=== PATIENT | female | born 1950 | race Caucasian/White ===

== ENCOUNTER 2017-07-22 08:44 | Outpatient (CLI) | payer MEDICARE, OTHER ==
--- NOTE | 2017-07-27 15:19 | DEXA Report ---
DEXA: 07/22/2017 CLINICAL INDICATION: Postmenopausal. TECHNIQUE: Dual energy x-ray absorptiometry (DXA) was performed on a [employer] system. Regions measured are the AP spine, femoral neck, and, if needed, forearm. COMPARISON: None. In accordance with the International Society for Clinical Densitometry (ISCD) guidelines, data from previous exams may be reanalyzed using current recommendations and techniques. This is done to allow a more accurate basis for comparison with the current study. FINDINGS Data for the lumbar spine is as follows: REGION BMD (g/cm/cm) T-SCORE Z-SCORE L1 0.982 -1.2 -0.6 L2 1.116 -0.7 0.0 L3 1.086 -0.9 -0.3 L4 0.976 -1.9 -1.2 TOTAL 1.038 -1.2 -0.5 NOTE: All evaluable vertebrae are used for classification. Data for the hip is as follows: REGION BMD (g/cm/cm) T-SCORE Z-SCORE Neck 0.855 -1.3 -0.4 TOTAL 0.853 -1.2 -0.6 NOTE: The femoral neck or total proximal femur, whichever is lowest, is used for classification. IMPRESSION THE WHO CLASSIFICATION BASED ON THE INTERNATIONAL REFERENCE STANDARD IS OSTEOPENIA. THE FRACTURE RISK IS INCREASED. RECOMMENDATION: Patients with diagnosis of osteoporosis or osteopenia should have regular bone mineral density assessment. For those eligible for Medicare, routine testing is allowed once every 2 years. Testing frequency can be increased for patients who have rapidly progressing disease or for those who are receiving medical therapy to restore bone mass. COMMENT: World Health Organization (WHO) definitions for osteoporosis and osteopenia: NORMAL BMD: T-score at 1.0 or higher, fracture risk is low. OSTEOPENIA BMD: T-score between 1.0 and -2.5, fracture risk is increased. OSTEOPOROSIS BMD: T-score at 2.5 or lower, fracture risk high. National Osteoporosis Foundation recommends: 1. Obtain adequate dietary calcium (at least 1200 mg per day) and vitamin D (400 -800 international units per day). 2. Participate, as appropriate, in regular weightbearing and muscle- strengthening exercise. 3. Avoid tobacco use and reduce alcohol and caffeine intake. 4. For more detailed information see the website at www.NOF.org. TD: 07/22/2017 19:43 MTDD
== END 2017-07-22 08:45 | disposition home or self-care (01) ==
LOC: DI 08:44
PROVIDERS: ATTEND Physician Assistant Medical
DX: M85.89 Other specified disorders of bone density and structure, multiple sites (principal)
CPT/HCPCS: 77080

== ENCOUNTER 2017-07-22 08:46 | Outpatient (CLI) | payer MEDICARE, OTHER ==
--- NOTE | 2017-07-28 15:28 | Mammography Report ---
DATE OF SERVICE: 07/22/2017 DIGITAL BILATERAL SCREENING MAMMOGRAM: 07/22/2017 COMPARISON: Mammogram 08/15/2015 INDICATION: Screening mammography. TECHNIQUE: Bilateral CC and MLO breast views. FINDINGS There are scattered fibroglandular densities. No dominant mass, architectural distortion, or concerning cluster of microcalcifications are seen. IMPRESSION: BIRADS category 1. Negative. RECOMMENDATIONS: Annual screening mammogram. STANDARD QUALIFYING STATEMENTS 1. This examination was reviewed with the aid of Computed-Aided Detection (CAD) . 2. A negative or benign imaging report should not delay biopsy if clinically suspicious findings are present. Consider surgical consultation if warranted. More than 5% of cancers are not identified by imaging. 3. Dense breasts may obscure an underlying neoplasm. TD: 07/26/2017 21:45 KIMANI
== END 2017-07-22 08:47 | disposition home or self-care (01) ==
LOC: DI 08:46
PROVIDERS: ATTEND Physician Assistant Medical
DX: Z12.31 Encounter for screening mammogram for malignant neoplasm of breast (principal)
CPT/HCPCS: 77067

== ENCOUNTER 2018-07-20 09:08 | Outpatient (CLI) | payer MEDICARE, OTHER ==
[2018-07-20 13:55] LABS: BASOPHILS # (AUTO) 0.1 10^3/uL (0.0-0.1); BASOPHILS % (AUTO) 1.9 %; EOSINOPHILS # (AUTO) 0.1 10^3/uL (0.0-0.7); EOSINOPHILS % (AUTO) 1.7 %; HGB - HEMOGLOBIN 14.5 g/dL (12.0-16.0); LYMPHOCYTES # (AUTO) 1.4 10^3/uL (1.5-3.5); MEAN CORPUSCULAR HEMOGLOBIN 31.9 pg (27.0-31.0); MEAN CORPUSCULAR HGB CONC 34.3 g/dL (32.0-36.0); MEAN PLATELET VOLUME 8.3 fL (7.9-10.8); MONOCYTES # (AUTO) 0.3 10^3/uL (0.0-1.0); MONOCYTES % (AUTO) 9.5 %; NEUTROPHILS # (AUTO) 1.8 10^3/uL (1.5-6.6); NEUTROPHILS % (AUTO) 47.9 %; PLT - PLATELET COUNT 273 10^3/uL (130-450); RED BLOOD COUNT 4.56 10^6/uL (4.20-5.40); RED CELL DISTRIBUTION WIDTH 13.2 % (12.0-15.0); WHITE BLOOD COUNT 3.7 x10^3/uL (4.8-10.8)
[2018-07-20 14:29] LABS: ALBUMIN 3.9 g/dL (3.2-5.5); ALBUMIN/GLOBULIN RATIO 1.3 (1.0-2.2); ALKALINE PHOSPHATASE 57 IU/L (42-121); ALT ALANINE AMINOTRANSFERASE 15 IU/L (10-60); AST ASPARTATE AMINOTRANSFERASE 16 IU/L (10-42); BILIRUBIN,TOTAL 0.4 mg/dL (0.2-1.0); BUN - BLOOD UREA NITROGEN 21 mg/dL (6-20); CALCIUM 8.8 mg/dL (8.5-10.3); CARBON DIOXIDE - CO2 25 mmol/L (21-32); CHLORIDE 109 mmol/L (101-111); CHOL/HDL RATIO 3.2 (<4.4); CHOLESTEROL 224 mg/dL; CREATININE 0.8 mg/dL (0.4-1.0); GFR - MDRD 71 (>89); GLUCOSE 112 mg/dL (70-100); HDL CHOLESTEROL 69 mg/dL; LDL CHOLESTEROL,CALCULATED 141 mg/dL; SODIUM 142 mmol/L (135-145); TOTAL PROTEIN 6.9 g/dL (6.7-8.2); VLDL CHOLESTEROL 14 mg/dL
[2018-07-21 09:47] LABS: HEPATITIS C ANTIBODY NON-REACTIVE (NON-REACTIVE)
== END 2018-07-20 23:59 | disposition home or self-care (01) ==
LOC: LAB.WCP 09:08
PROVIDERS: ATTEND Physician Assistant Medical
DX: E78.2 Mixed hyperlipidemia (principal); E03.9 Hypothyroidism, unspecified; K21.9 Gastro-esophageal reflux disease without esophagitis; Z11.59 Encounter for screening for other viral diseases
CPT/HCPCS: 36415; 80053; 80061; 83721; 84443; 85025; 86803

== ENCOUNTER 2018-07-26 10:12 | Outpatient (CLI) | payer MEDICARE, OTHER ==
--- NOTE | 2018-07-27 09:06 | Mammography Report ---
Reason: SCREENING MAMMO Procedure Date: 07/26/2018 Accession Number: [id number] / [id number] Procedure: MGN - Screening Mammo Dig Bilat CPT Code: FULL RESULT: EXAM: Screening Mammo Dig Bilat DATE: 07/26/2018 10:28 AM CLINICAL HISTORY: Screening encounter. History of late childbearing. TECHNIQUE: Bilateral CC and MLO views were obtained. COMPARISON: 07/22/2017 through 05/30/2013. FINDINGS: The breasts demonstrate scattered fibroglandular densities bilaterally. No suspicious masses, clustered microcalcifications, or regions of architectural distortion are identified. IMPRESSION: Negative examination RECOMMENDATION: Routine annual screening unless otherwise clinically indicated. BIRADS CATEGORY 1: Negative STANDARD QUALIFYING STATEMENTS: 1. This examination was reviewed with the aid of Computer-Aided Detection (CAD). 2. A negative or benign imaging report should not preclude biopsy if clinically suspicious findings are present. 3. Dense breasts may obscure an underlying neoplasm. 4. This examination was reviewed without the aid of 3D breast imaging (tomosynthesis).
== END 2018-07-26 10:13 | disposition home or self-care (01) ==
LOC: DI.N 10:12
DX: Z12.31 Encounter for screening mammogram for malignant neoplasm of breast (principal)
CPT/HCPCS: 77067

== ENCOUNTER 2018-09-19 14:48 | Outpatient (CLI) | payer MEDICARE, OTHER | END 2018-09-19 14:49 | disposition home or self-care (01) | LOC: SC 14:48 | PROVIDERS: ATTEND Internal Medicine Pulmonary Disease | DX: G47.10 Hypersomnia, unspecified (principal); G47.8 Other sleep disorders; R06.83 Snoring; E66.9 Obesity, unspecified; Z68.33 Body mass index [BMI] 33.0-33.9, adult | CPT/HCPCS: 99203; G0463; 99212 ==

== ENCOUNTER 2018-10-17 19:29 | Outpatient (CLI) | payer MEDICARE, OTHER | END 2018-10-17 19:30 | disposition home or self-care (01) | LOC: SC 19:29 | PROVIDERS: ATTEND Internal Medicine Pulmonary Disease | DX: G47.61 Periodic limb movement disorder (principal) | CPT/HCPCS: 95810 ==

== ENCOUNTER 2018-10-30 15:13 | Outpatient (CLI) | payer MEDICARE, OTHER | END 2018-10-30 15:14 | disposition home or self-care (01) | LOC: SC 15:13 | PROVIDERS: ATTEND Nurse Practitioner Family | DX: R06.83 Snoring (principal); G47.61 Periodic limb movement disorder | CPT/HCPCS: 99214; G0463; 99212 ==

== ENCOUNTER 2018-12-15 09:56 | Outpatient (CLI) | payer MEDICARE, OTHER ==
[2018-12-15 13:09] LABS: BUN - BLOOD UREA NITROGEN 22 mg/dL (6-20); CALCIUM 8.7 mg/dL (8.5-10.3); CARBON DIOXIDE - CO2 23 mmol/L (21-32); CHLORIDE 108 mmol/L (101-111); CHOL/HDL RATIO 3.3 (<4.4); CHOLESTEROL 223 mg/dL; CREATININE 0.8 mg/dL (0.4-1.0); GFR - MDRD 71 (>89); GLUCOSE 78 mg/dL (70-100); HDL CHOLESTEROL 67 mg/dL; LDL CHOLESTEROL,CALCULATED 142 mg/dL; LDL/HDL RATIO 2.1 (<4.4); SODIUM 140 mmol/L (135-145); VLDL CHOLESTEROL 14 mg/dL
[2018-12-15 13:12] LABS: HB2 TOTAL 14.9 g/dL; HEMOGLOBIN A1C 0.5 g/dL; HEMOGLOBIN A1C % 5.2 % (4.6-6.2)
== END 2018-12-15 23:59 | disposition home or self-care (01) ==
LOC: LAB.WCP 09:56
PROVIDERS: ATTEND Physician Assistant Medical
DX: R73.9 Hyperglycemia, unspecified (principal); E03.9 Hypothyroidism, unspecified; E78.2 Mixed hyperlipidemia
CPT/HCPCS: 36415; 80048; 80061; 83036; 83721

== ENCOUNTER 2019-09-27 15:51 | Outpatient (CLI) | payer MEDICARE, OTHER ==
--- NOTE | 2019-09-28 16:27 | DEXA Report ---
Reason: BONE DISEASE Procedure Date: 09/27/2019 Accession Number: [id number] / [id number] Procedure: DEX - Dexa Spine and/or Hip CPT Code: Final Report FULL RESULT: EXAM: Dexa Spine and/or Hip DATE: 09/27/2019 4:15 PM CLINICAL HISTORY: BONE DISEASE TECHNIQUE: Dual energy x-ray absorptiometry (DXA) was performed on a [employer] System. Regions measured are the AP Spine, femoral neck, and if needed forearm. COMPARISON: None. In accordance with the International Society for Clinical Densitometry (ISCD) guidelines, data from previous exams may be reanalyzed using current recommendations and techniques. This is done to allow a more accurate basis for comparison with the current study. FINDINGS: The data for the lumbar spine is as follows: BMD (g/cm/cm) T-SCORE Z-SCORE REGION L1 1.063 -0.6 0.4 L2 1.186 -0.1 0.9 L3 1.029 -1.4 -0.4 L4 0.989 -1.8 -0.8 TOTAL 1.057 -1.0 0.0 NOTE: All evaluable vertebrae are used for classification The data for the hip is as follows: BMD (g/cm/cm) T-SCORE Z-SCORE REGION Neck 0.738 -2.2 -0.9 TOTAL 0.776 -1.8 -0.9 NOTE: The femoral neck or total proximal femur, whichever is lowest, is used for classification. DXA RESULTS SUMMARY: Spine SCAN DATE AGE BMD CHANGE VS CHANGE VS PREVIOUS PREVIOUS % 09[age]27/2019 [age] 1.057 0.019 1.8 07/22/2017 [age] 1.038 * Denotes significant change at the 95% confidence level. Denotes dissimilar scan types or analysis methods. DXA RESULTS SUMMARY: Hip SCAN DATE AGE BMD CHANGE VS CHANGE VS PREVIOUS PREVIOUS % 09[age]27/2019 69.1 0.776 -0.077* -9.0 07/22/2017 [age] 0.853 * Denotes significant change at the 95% confidence level. Denotes dissimilar scan types or analysis methods. IMPRESSION: THE WHO CLASSIFICATION BASED ON THE INTERNATIONAL REFERENCE STANDARD IS OSTEOPENIA. THE FRACTURE RISK IS INCREASED. Interval decrease in bone density in the hip is statistically significant. RECOMMENDATION: Patients with diagnosis of osteoporosis or osteopenia should have regular bone mineral density assessment. For those eligible for Medicare, routine testing is allowed once every 2 years. Testing frequency can be increased for patients who have rapidly progressing disease or for those who are receiving medical therapy to restore bone mass. COMMENT: World Health Organization (WHO) definitions for osteoporosis and osteopenia: NORMAL BMD: T-score at -1.0 or higher, fracture risk is low OSTEOPENIA BMD: T-score between -1.0 and -2.5, fracture risk is increased. OSTEOPOROSIS BMD: T-score at -2.5 or lower, fracture risk is high. National Osteoporosis Foundation recommends: 1. Obtain adequate dietary calcium (at least 1200 mg per day) and vitamin D (400-800 international units per day). 2. Participate, as appropriate, in regular weightbearing and muscle-strengthening exercise. 3. Avoid tobacco use and reduce alcohol and caffeine intake. 4. For more detailed information see the website at www.NOF.org.
== END 2019-09-27 15:52 | disposition home or self-care (01) ==
LOC: DI 15:51
PROVIDERS: ATTEND Physician Assistant Medical
DX: M85.88 Other specified disorders of bone density and structure, other site (principal)
CPT/HCPCS: 77080

== ENCOUNTER 2019-09-27 15:52 | Outpatient (CLI) | payer MEDICARE, OTHER ==
--- NOTE | 2019-09-28 08:26 | Mammography Report ---
Reason: ROUTINE MAMMO Procedure Date: 09/27/2019 Accession Number: [id number] / [id number] Procedure: SERENA - Screening Mammo w/Raffaele CPT Code: Final Report FULL RESULT: EXAM: Screening Mammo w/Raffaele DATE: 09/27/2019 4:25 PM CLINICAL HISTORY: Screening encounter. History of late childbearing. TECHNIQUE: (B) - Bilateral CC and MLO views were obtained. COMPARISON: 07/26/2018 through 01/28/2010. PARENCHYMAL PATTERN: (A) - The breast(s) demonstrate(s) scattered fibroglandular densities. FINDINGS: There are no suspicious masses, calcifications, or areas of distortion. IMPRESSION: Negative examination. BI-RADS category 1. RECOMMENDATION: (ANNUAL) - Recommend routine annual screening mammography. BI-RADS CATEGORY: (1) - Negative. STANDARD QUALIFYING STATEMENTS: 1. This examination was not reviewed with the aid of Computer-Aided Detection (CAD). 2. A negative or benign imaging report should not preclude biopsy if clinically suspicious findings are present. 3. Dense breasts may obscure an underlying neoplasm. 4. This examination was reviewed without the aid of 3D breast imaging (tomosynthesis).
== END 2019-09-27 15:53 | disposition home or self-care (01) ==
LOC: DI 15:52
PROVIDERS: ATTEND Physician Assistant Medical
DX: Z12.31 Encounter for screening mammogram for malignant neoplasm of breast (principal)
CPT/HCPCS: 77063; 77067

== ENCOUNTER 2019-10-01 08:00 | Outpatient (CLI) | payer MEDICARE, OTHER | END 2019-10-01 23:59 | disposition home or self-care (01) | LOC: LAB.WCP 08:00 | PROVIDERS: ATTEND Physician Assistant Medical | DX: E03.9 Hypothyroidism, unspecified (principal) | CPT/HCPCS: 36415; 84443 ==

== ENCOUNTER 2020-10-21 09:58 | Outpatient (CLI) | payer MEDICARE, OTHER ==
--- NOTE | 2020-10-21 12:01 | Mammography Report ---
BILATERAL DIGITAL SCREENING MAMMOGRAM 3D/2D: 10/21/2020 CLINICAL: Routine screening. Comparison is made to exams dated: 09/27/2019 mammogram, 07/26/2018 mammogram, 07/22/2017 mammogram, 07/26 mammogram, 07/08/2014 mammogram, and 05/30/2013 mammogram - [facility]. The tissue of both breasts is predominantly fatty. No significant masses, calcifications, or other findings are seen in either breast. There has been no significant interval change. IMPRESSION: NEGATIVE There is no mammographic evidence of malignancy. A 1 year screening mammogram is recommended. This exam was interpreted at Station ID: [id number]. NOTE: For mammograms, a report in lay terms will be sent to the patient. Approximately 15% of breast malignancies will not be visualized mammographically. In the management of a palpable breast mass, a negative mammogram must not discourage biopsy of a clinically suspicious lesion. Electronically Signed By: Desmond Welch acr/penrad:10/21/2020 11:10:54 ACR BI-RADS Category 1: Negative 3341F PARENCHYMAL PATTERN: (F) - The breast(s) demonstrate(s) diffuse fatty replacement. BI-RADS CATEGORY: (1) - 1 RECOMMENDATION: (ANNUAL) - Recommend routine annual screening mammography. [id number] 1 year screening LATERALITY: (B)
== END 2020-10-21 09:59 | disposition home or self-care (01) ==
LOC: DI.N 09:58
DX: Z12.31 Encounter for screening mammogram for malignant neoplasm of breast (principal)

== ENCOUNTER 2020-12-11 08:00 | Outpatient (CLI) | payer MEDICARE, OTHER ==
[2020-12-11 17:50] LABS: BASOPHILS # (AUTO) 0.1 10^3/uL (0.0-0.1); BASOPHILS % (AUTO) 1.4 %; EOSINOPHILS # (AUTO) 0.1 10^3/uL (0.0-0.7); EOSINOPHILS % (AUTO) 1.9 %; HCT - HEMATOCRIT 44.3 % (37.0-47.0); HGB - HEMOGLOBIN 13.7 g/dL (12.0-16.0); LYMPHOCYTES # (AUTO) 1.8 10^3/uL (1.5-3.5); LYMPHOCYTES % (AUTO) 42.2 %; MEAN CORPUSCULAR HEMOGLOBIN 29.1 pg (27.0-31.0); MEAN CORPUSCULAR HGB CONC 30.9 g/dL (32.0-36.0); MEAN CORPUSCULAR VOLUME 94.3 fL (81.0-99.0); MEAN PLATELET VOLUME 9.9 fL (7.9-10.8); MONOCYTES # (AUTO) 0.4 10^3/uL (0.0-1.0); MONOCYTES % (AUTO) 9.6 %; NEUTROPHILS # (AUTO) 1.9 10^3/uL (1.5-6.6); NEUTROPHILS % (AUTO) 44.7 %; PLT - PLATELET COUNT 319 10^3/uL (130-450); RED CELL DISTRIBUTION WIDTH 13.1 % (12.0-15.0); WHITE BLOOD COUNT 4.2 x10^3/uL (4.8-10.8)
[2020-12-11 18:18] LABS: ALBUMIN 4.1 g/dL (3.2-5.5); ALBUMIN/GLOBULIN RATIO 1.4 (1.0-2.2); ALKALINE PHOSPHATASE 52 IU/L (42-121); ALT ALANINE AMINOTRANSFERASE 17 IU/L (10-60); AST ASPARTATE AMINOTRANSFERASE 18 IU/L (10-42); BILIRUBIN,TOTAL 0.7 mg/dL (0.2-1.0); BUN - BLOOD UREA NITROGEN 22 mg/dL (6-20); CARBON DIOXIDE - CO2 26 mmol/L (21-32); CHLORIDE 106 mmol/L (101-111); CHOL/HDL RATIO 2.7 (<4.4); CHOLESTEROL 243 mg/dL; CREATININE 0.9 mg/dL (0.4-1.0); GFR - MDRD 62 (>89); GLUCOSE 91 mg/dL (70-100); HDL CHOLESTEROL 90 mg/dL; LDL CHOLESTEROL,CALCULATED 139 mg/dL; LDL/HDL RATIO 1.5 (<4.4); POTASSIUM 4.5 mmol/L (3.5-5.0); SODIUM 139 mmol/L (135-145); TRIGLYCERIDES 69 mg/dL; VLDL CHOLESTEROL 14 mg/dL
[2020-12-11 18:21] LABS: THYROID STIMULATING HORMONE 1.23 uIU/mL (0.34-5.60)
== END 2020-12-11 23:59 | disposition home or self-care (01) ==
LOC: LAB.WCP 08:00
PROVIDERS: ATTEND Physician Assistant Medical
DX: E78.2 Mixed hyperlipidemia (principal); E03.9 Hypothyroidism, unspecified; J31.0 Chronic rhinitis
CPT/HCPCS: 36415; 80053; 80061; 83721; 84443; 85025

== ENCOUNTER 2021-08-26 09:05 | Outpatient (CLI) | payer MEDICARE, OTHER ==
[2021-08-26 12:12] LABS: BASOPHILS # (AUTO) 0.1 10^3/uL (0.0-0.1); BASOPHILS % (AUTO) 1.1 %; EOSINOPHILS # (AUTO) 0.1 10^3/uL (0.0-0.7); EOSINOPHILS % (AUTO) 1.8 %; HCT - HEMATOCRIT 44.6 % (37.0-47.0); HGB - HEMOGLOBIN 14.8 g/dL (12.0-16.0); LYMPHOCYTES # (AUTO) 2.4 10^3/uL (1.5-3.5); LYMPHOCYTES % (AUTO) 43.6 %; MEAN CORPUSCULAR HEMOGLOBIN 30.4 pg (27.0-31.0); MEAN CORPUSCULAR HGB CONC 33.2 g/dL (32.0-36.0); MEAN CORPUSCULAR VOLUME 91.6 fL (81.0-99.0); MEAN PLATELET VOLUME 9.6 fL (7.9-10.8); MONOCYTES # (AUTO) 0.5 10^3/uL (0.0-1.0); MONOCYTES % (AUTO) 9.6 %; NEUTROPHILS # (AUTO) 2.4 10^3/uL (1.5-6.6); NEUTROPHILS % (AUTO) 43.5 %; PLT - PLATELET COUNT 312 10^3/uL (130-450); RED BLOOD COUNT 4.87 10^6/uL (4.20-5.40); RED CELL DISTRIBUTION WIDTH 14.1 % (12.0-15.0); WHITE BLOOD COUNT 5.4 x10^3/uL (4.8-10.8)
[2021-08-26 12:53] LABS: ALBUMIN 3.7 g/dL (3.2-5.5); ALBUMIN/GLOBULIN RATIO 1.2 (1.0-2.2); ALKALINE PHOSPHATASE 57 IU/L (42-121); ALT ALANINE AMINOTRANSFERASE 15 IU/L (10-60); AST ASPARTATE AMINOTRANSFERASE 13 IU/L (10-42); BILIRUBIN,TOTAL 0.9 mg/dL (0.2-1.0); BUN - BLOOD UREA NITROGEN 18 mg/dL (6-20); CALCIUM 8.8 mg/dL (8.5-10.3); CARBON DIOXIDE - CO2 26 mmol/L (21-32); CHLORIDE 105 mmol/L (101-111); CHOLESTEROL 266 mg/dL; CREATININE 0.9 mg/dL (0.4-1.0); GFR - MDRD 62 (>89); GLUCOSE 104 mg/dL (70-100); HDL CHOLESTEROL 89 mg/dL; LDL CHOLESTEROL,CALCULATED 168 mg/dL; LDL/HDL RATIO 1.9 (<4.4); POTASSIUM 4.2 mmol/L (3.5-5.0); SODIUM 140 mmol/L (135-145); TOTAL PROTEIN 6.7 g/dL (6.7-8.2); TRIGLYCERIDES 44 mg/dL; VLDL CHOLESTEROL 9 mg/dL
[2021-08-26 12:56] LABS: THYROID STIMULATING HORMONE 1.21 uIU/mL (0.34-5.60)
== END 2021-08-26 09:06 | disposition home or self-care (01) ==
LOC: LAB.N 09:05
PROVIDERS: ATTEND Physician Assistant Medical
DX: E03.9 Hypothyroidism, unspecified (principal); E78.2 Mixed hyperlipidemia
CPT/HCPCS: 36415; 80053; 80061; 83721; 84443; 85025

== ENCOUNTER 2021-09-25 09:45 | Outpatient (CLI) | payer MEDICARE, OTHER ==
--- NOTE | 2021-09-25 16:25 | XRAY Report ---
PROCEDURE: Chest 2 View X-Ray INDICATIONS: COUGH TECHNIQUE: 2 view(s) of the chest. COMPARISON: None. FINDINGS: Surgical changes and devices: None. Lungs and pleura: No pleural effusions or pneumothorax. Lungs are clear. Mediastinum: Mediastinal contours are normal. Heart size is normal. Bones and chest wall: No suspicious bony abnormalities. Soft tissues appear unremarkable. IMPRESSION: No acute cardiopulmonary pathology. Reviewed by: Hussain Welch MD on 09/25/2021 4:24 PM [facility] Approved by: Hussain Welch MD on 09/25/2021 4:24 PM [facility] Station ID: [id number]
== END 2021-09-25 09:46 | disposition home or self-care (01) ==
LOC: DI.N 09:45
PROVIDERS: ATTEND Physician Assistant Medical
DX: R05.9 Cough, unspecified (principal)

== ENCOUNTER 2021-10-27 15:20 | Outpatient (CLI) | payer MEDICARE, OTHER ==
--- NOTE | 2021-10-28 16:50 | DEXA Report ---
PROCEDURE: Dexa Spine and/or Hip INDICATIONS: POST MENOPAUSAL STATUS TECHNIQUE: Dual energy x-ray absorptiometry (DXA) was performed on a [employer] System. Regions measur ed are the AP Spine, femoral neck, and if needed forearm. COMPARISON: DEXA 09/27/2019 FINDINGS: Lumbar Spine: Bone Mineral Density 1.034 g/cm/cm,T score -1.2, compared to -1.0 Left Hip: Bone Mineral Density 0.816 g/cm/cm,T score -1.5, compared to -1.8 Left Femoral Neck: Bone Mineral Density 0.708 g/cm/cm, T score -2.4, compared to -2.2 (T score greater or equal to -1.0: NORMAL) (T score from -1.1 to -2.4: OSTEOPENIA) (T score less than or equal to -2.5 to: OSTEOPOROSIS) Impression: There is mild appearance of increased bone mineral density within the left hip. However there has bee n progressive mineral loss in the femoral neck now borderline osteoporotic. Patients with diagnosis of osteoporosis or osteopenia should have regular bone mineral density assess ment. For those eligible for Medicare, routine testing is allowed once every 2 years. Testing frequ ency can be increased for patients who have rapidly progressing disease or for those who are receivin g medical therapy to restore bone mass. Reviewed by: Magi Crandall MD on 10/28/2021 4:49 PM PDT Approved by: Magi Crandall MD on 10/28/2021 4:49 PM PDT Station ID: [id number]
== END 2021-10-27 15:21 | disposition home or self-care (01) ==
LOC: DI 15:20
PROVIDERS: ATTEND Physician Assistant Medical
DX: M85.89 Other specified disorders of bone density and structure, multiple sites (principal); Z78.0 Asymptomatic menopausal state

== ENCOUNTER 2022-01-19 14:49 | Outpatient (CLI) | payer MEDICARE, OTHER ==
--- NOTE | 2022-01-20 10:09 | CT Report ---
PROCEDURE: CHEST WO INDICATIONS: COUGH TECHNIQUE: Noncontrast 1mm axial images were acquired from the pulmonary apices to the posterior costophrenic an gles. Axial 5 mm soft tissue kernel reconstructions were performed as well as 8 mm axial MIP and cor onal and sagittal 5 mm reformations. For radiation dose reduction, the following was used: automate d exposure control, adjustment of mA and/or kV according to patient size. COMPARISON: Chest x-ray 2 views, 09/25/2021. FINDINGS: Image quality: Excellent. Lungs and pleura: Two clustered irregular subsolid nodular densities are seen in the left upper lobe with peripheral groundglass attenuation measuring 0.4 cm and 0.8 cm. There are subcortical scars and atelectasis in lingula, right middle lobe and both lower lobes. No pleural effusions or pneumothorax. Central and peripheral airways are patent and normal in calibe r. Mediastinum: Heart size is normal. No pericardial effusion. No mediastinal adenopathy by size crit eria. Thoracic aorta and central pulmonary arteries are normal in size. Esophagus is normal in solomon samantha. No hiatal hernia. Bones and chest wall: No suspicious bony lesions. No vertebral body compression fractures. No axil teresa or supraclavicular adenopathy by size criteria. The thyroid is normal in size and there are no incidental findings. Abdomen: There is a 4.3 cm low-density mass in superior aspect of spleen with foci of calcification. A 1.5 cm dense nodule is noted in the right hepatic lobe, most likely a cyst. A few diverticula are noted. No active diverticulitis. IMPRESSION: 1. Two irregular subsolid nodular densities are seen in the left upper lobe, most likely infectious o r inflammatory etiology. Findings short-term follow-up CT in 3 months. 2. Subpleural scars and atelectasis in lingula, right middle lobe and both lower lobes. 3. A 4.3 cm low-density mass with foci of calcification in the superior aspect of the spleen. This mo st likely a parasitic cyst. If clinically indicated, ultrasound could be obtained for initial further evaluation. 4. A 1.5 cm cyst in the right hepatic lobe. CLINICAL RECOMMENDATION STATEMENTS: In patients <35 years with an ITN detected on CT, MRI, or extrathyroidal ultrasound, the Committee re commends further evaluation with dedicated thyroid ultrasound if the nodule is "e1 cm and has no susp icious imaging features, and if the patient has normal life expectancy. In patients "e35 years with an ITN detected on CT, MRI, or extrathyroidal ultrasound, the Committee r ecommends further evaluation with dedicated thyroid ultrasound if the nodule is "e1.5 cm and has no s uspicious imaging features, and if the patient has normal life expectancy. (ACR, 2014) Reviewed by: Love Robison MD on 01/20/2022 10:08 AM PDT Approved by: Love Robison MD on 01/20/2022 10:08 AM PDT Station ID: [id number]
== END 2022-01-19 14:50 | disposition home or self-care (01) ==
LOC: DI 14:49
PROVIDERS: ATTEND Physician Assistant Medical
DX: R91.8 Other nonspecific abnormal finding of lung field (principal); R16.1 Splenomegaly, not elsewhere classified

== ENCOUNTER 2022-04-01 08:00 | Outpatient (CLI) | payer MEDICARE, OTHER | END 2022-04-01 23:59 | disposition home or self-care (01) | LOC: LAB.N 08:00 | PROVIDERS: ATTEND Family Medicine | DX: N30.00 Acute cystitis without hematuria (principal) | CPT/HCPCS: 87086; 87181 ==

== ENCOUNTER 2022-04-21 14:25 | Outpatient (CLI) | payer MEDICARE, OTHER | END 2022-04-21 14:26 | disposition home or self-care (01) | LOC: LAB.N 14:25 | PROVIDERS: ATTEND Registered Nurse | DX: N30.00 Acute cystitis without hematuria (principal) | CPT/HCPCS: 87086 ==

== ENCOUNTER 2022-05-17 07:02 | Outpatient (CLI) | payer MEDICARE, OTHER ==
--- NOTE | 2022-05-17 09:07 | CT Report ---
PROCEDURE: CHEST WO INDICATIONS: BENIGN TUMOR OF SPLEEN, PELVIC PAIN, PULMONARY NOD TECHNIQUE: Noncontrast 1mm axial images were acquired from the pulmonary apices to the posterior costophrenic an gles. Axial 5 mm soft tissue kernel reconstructions were performed as well as 8 mm axial MIP and cor onal and sagittal 5 mm reformations. For radiation dose reduction, the following was used: automate d exposure control, adjustment of mA and/or kV according to patient size. COMPARISON: 01/19/2022 FINDINGS: Image quality: Excellent. Lungs and pleura: 2 ill-defined subsolid nodular densities in the left upper lobe series 4 image 57 a nd series 4 image 59 are unchanged compared to the prior CT on 01/19/2022. Scarring in the lingula, ri ght middle lobe, and both lower lobes is unchanged. No acute air space opacities. No pleural effusio ns or pneumothorax. Central and peripheral airways are patent and normal in caliber. Mediastinum: Heart size is normal. No pericardial effusion. No mediastinal adenopathy by size crit eria. Thoracic aorta and central pulmonary arteries are normal in size. Esophagus is normal in solomon samantha. No hiatal hernia. Bones and chest wall: No suspicious bony lesions. No vertebral body compression fractures. No axil teresa or supraclavicular adenopathy by size criteria. The thyroid is normal in size and there are no incidental findings. Abdomen: A low density mass in the superior aspect of the spleen with a focus of calcification is unc hanged. A 1.5 cm hypodense nodule in the right hepatic lobe likely a cyst is also unchanged. Upper ab dominal solid organs and bowel loops appear normal in the absence of contrast. IMPRESSION: 1. 2 ill-defined subsolid nodular densities in the left upper lobe are unchanged compared to prior CT on 01/19/2022. Recommend continued follow-up with annual CT for 3 years. 2. Low-density mass in the spleen and kidney are unchanged. Reviewed by: Desmond Welch on 05/17/2022 9:05 AM PDT Approved by: Desmond Welch on 05/17/2022 9:05 AM PDT Station ID: [id number]
--- NOTE | 2022-05-17 09:14 | Ultrasound Report ---
PROCEDURE: Abdomen Limited INDICATIONS: BENIGN TUMOR OF SPLEEN, PELVIC PAIN, PULMONARY NOD TECHNIQUE: Real-time focused scanning was performed of the left upper quadrant and abdomen to evaluate the splee n with image documentation. COMPARISON: No prior study available. FINDINGS: Spleen measures 9.4 cm maximum dimension. Cystic mass with a few low-level internal echoes and septations in the inferior aspect of the spleen measuring 3.8 x 3.7 x 3.2 cm. IMPRESSION: Normal size of the spleen with a predominantly cystic mass in the inferior aspect of the spleen measu ring up to 3.8 cm. Correlate with prior studies. Reviewed by: Jt Valentine MD on 05/17/2022 9:13 AM PDT Approved by: Jt Valentine MD on 05/17/2022 9:13 AM PDT Station ID: [id number]
--- NOTE | 2022-05-17 21:11 | Ultrasound Report ---
PROCEDURE: Pelvic w/Transvaginal INDICATIONS: BENIGN TUMOR OF SPLEEN, PELVIC PAIN, PULMONARY NOD TECHNIQUE: Real-time scanning was performed of the pelvic organs, with image documentation. Additional endovagi nal scanning was necessary due to incomplete visualization of the adnexal and endometrial structures by transabdominal scanning. COMPARISON: None FINDINGS: Uterus: Uterus is anteverted and normal in size at 7.1 x 2.0 x 3.0 cm. The myometrium is homogeneou s. The endometrium measures 5.7 mm in combined thickness. Ovaries: The right ovary is not visualized.. The left ovary measures 2.5 x 2.2 x 2.1 cm, with a mireya culated ovarian volume of 6.0 cc. Within the left ovary there is a focus of decreased echogenicity me asuring 2.1 x 1.6 x 1.9 cm. Other: No pathologic free abdominal or pelvic fluid. IMPRESSION: Cystic focus within the right ovary as above. Given size and postmenopausal age, cystic malignancy cannot be definitively excluded. Recommend further clinical follow-up as well as short int erval ultrasound or pelvic MRI imaging. Reviewed by: Magi Crandall MD on 05/17/2022 9:10 PM PDT Approved by: Magi Crandall MD on 05/17/2022 9:10 PM PDT Station ID: [id number]
== END 2022-05-17 07:03 | disposition home or self-care (01) ==
LOC: DI 07:02
PROVIDERS: ATTEND Physician Assistant Medical
DX: R91.8 Other nonspecific abnormal finding of lung field (principal); N28.89 Other specified disorders of kidney and ureter; D73.4 Cyst of spleen; R93.89 Abnormal findings on diagnostic imaging of other specified body structures

== ENCOUNTER 2022-06-01 15:33 | Outpatient (CLI) | payer MEDICARE, OTHER | END 2022-06-01 15:34 | disposition home or self-care (01) | LOC: LAB.N 15:33 | PROVIDERS: ATTEND Physician Assistant Medical | DX: Z53.9 Procedure and treatment not carried out, unspecified reason (principal) ==

== ENCOUNTER 2022-06-11 14:34 | Outpatient (CLI) | payer MEDICARE, OTHER | END 2022-06-11 14:35 | disposition home or self-care (01) | LOC: LAB.N 14:34 | PROVIDERS: ATTEND Physician Assistant Medical | DX: C56.9 Malignant neoplasm of unspecified ovary (principal); R91.1 Solitary pulmonary nodule | CPT/HCPCS: 36415; 86304 ==

== ENCOUNTER 2022-07-29 09:45 | Outpatient (CLI) | payer MEDICARE, OTHER ==
--- NOTE | 2022-07-29 12:46 | Mammography Report ---
UNILATERAL RIGHT DIGITAL DIAGNOSTIC MAMMOGRAM 3D/2D: 07/29/2022 CLINICAL: Patient returns today to evaluate a focal asymmetry in the right breast. Comparison is made to exams dated: 07/08/2022 mammogram, 10/21/2020 mammogram, 09/27/2019 mammogram, 07/26/2018 mammogram, and 07/22/2017 mammogram - [facility]. The right breast is almost entirely fatty (category a/<25% glandular tissue). The possible benign asymmetry in the right breast central to the nipple middle depth is not reproduce d and presumably represented superimposed breast tissue. This is not seen in additional views. No other significant masses or calcifications are seen in the breast. IMPRESSION: BENIGN There is no mammographic evidence of malignancy. A 1 year screening mammogram is recommended. Based on the Tyrer Cuzick model (a risk assessment model) the patients lifetime risk is 2.6% and her 10 year risk is 1.9%. According to the ACR, ACS, and NCCN guidelines, an annual breast MRI exam kevin g with mammogram is recommended if the patients lifetime risk is 20% or greater. This exam was interpreted at Station ID: [id number]. NOTE: For mammograms, a report in lay terms will be sent to the patient. Approximately 15% of breast malignancies will not be visualized mammographically. In the management of a palpable breast mass, a negative mammogram must not discourage biopsy of a clinically suspicious lesion. Electronically Signed By: Jt Valentine M.D., jr/jake:07/29/2022 12:01:54 ACR BI-RADS Category 2: Benign Finding(s) 3342F PARENCHYMAL PATTERN: (F) - The breast(s) demonstrate(s) diffuse fatty replacement. BI-RADS CATEGORY: (2) - 2 RECOMMENDATION: (ANNUAL) - Recommend routine annual screening mammography. [id number] 1 year screening LATERALITY: (B)
== END 2022-07-29 09:46 | disposition home or self-care (01) ==
LOC: DI 09:45
PROVIDERS: ATTEND Family Medicine
DX: R92.8 Other abnormal and inconclusive findings on diagnostic imaging of breast (principal)

== ENCOUNTER 2022-09-06 10:17 | Outpatient (CLI) | payer MEDICARE, OTHER ==
[2022-09-06 12:21] LABS: BASOPHILS # (AUTO) 0.1 10^3/uL (0.0-0.1); BASOPHILS % (AUTO) 1.8 %; EOSINOPHILS # (AUTO) 0.1 10^3/uL (0.0-0.7); HCT - HEMATOCRIT 38.9 % (37.0-47.0); HGB - HEMOGLOBIN 11.9 g/dL (12.0-16.0); LYMPHOCYTES # (AUTO) 2.2 10^3/uL (1.5-3.5); LYMPHOCYTES % (AUTO) 48.5 %; MEAN CORPUSCULAR HEMOGLOBIN 27.8 pg (27.0-31.0); MEAN CORPUSCULAR HGB CONC 30.6 g/dL (32.0-36.0); MEAN CORPUSCULAR VOLUME 90.9 fL (81.0-99.0); MEAN PLATELET VOLUME 9.5 fL (7.9-10.8); MONOCYTES # (AUTO) 0.4 10^3/uL (0.0-1.0); MONOCYTES % (AUTO) 9.7 %; NEUTROPHILS # (AUTO) 1.7 10^3/uL (1.5-6.6); NEUTROPHILS % (AUTO) 37.8 %; PLT - PLATELET COUNT 340 10^3/uL (130-450); RED BLOOD COUNT 4.28 10^6/uL (4.20-5.40); RED CELL DISTRIBUTION WIDTH 13.8 % (12.0-15.0); WHITE BLOOD COUNT 4.5 x10^3/uL (4.8-10.8)
[2022-09-06 13:23] LABS: ALBUMIN 3.8 g/dL (3.2-5.5); ALBUMIN/GLOBULIN RATIO 1.4 (1.0-2.2); ALKALINE PHOSPHATASE 54 IU/L (42-121); ALT ALANINE AMINOTRANSFERASE 14 IU/L (10-60); AST ASPARTATE AMINOTRANSFERASE 16 IU/L (10-42); BILIRUBIN,TOTAL 0.5 mg/dL (0.2-1.0); BUN - BLOOD UREA NITROGEN 20 mg/dL (6-20); CALCIUM 9.1 mg/dL (8.5-10.3); CARBON DIOXIDE - CO2 25 mmol/L (21-32); CHLORIDE 108 mmol/L (101-111); CHOL/HDL RATIO 2.7 (<4.4); CHOLESTEROL 238 mg/dL; GFR - MDRD 54 (>89); GLUCOSE 104 mg/dL (70-100); HDL CHOLESTEROL 88 mg/dL; LDL CHOLESTEROL,CALCULATED 141 mg/dL; LDL/HDL RATIO 1.6 (<4.4); POTASSIUM 4.5 mmol/L (3.5-5.0); SODIUM 140 mmol/L (135-145); TOTAL PROTEIN 6.6 g/dL (6.7-8.2); TRIGLYCERIDES 43 mg/dL; VLDL CHOLESTEROL 9 mg/dL
== END 2022-09-06 10:18 | disposition home or self-care (01) ==
LOC: LAB.N 10:17
PROVIDERS: ATTEND Physician Assistant Medical
DX: E78.2 Mixed hyperlipidemia (principal); R10.2 Pelvic and perineal pain
CPT/HCPCS: 36415; 80053; 80061; 83721; 85025

== ENCOUNTER 2022-09-08 14:26 | Outpatient (CLI) | payer MEDICARE, OTHER ==
[2022-09-08] MEDS ORDERED: DIATRIZOATE MEGLU/DIATRIZO SOD 30 ML BOTTLE PO ONE (14:32)
[2022-09-08] MEDS ORDERED: iohexoL-300 100 ML VIAL ONE (14:33)
[2022-09-08 14:46] LABS: CREATININE 0.9 mg/dL (0.4-1.0)
[2022-09-08] MEDS ORDERED: iohexoL-300 100 ML VIAL IVP ONE (16:00)
--- NOTE | 2022-09-08 16:17 | CT Report ---
PROCEDURE: ABDOMEN/PELVIS W INDICATIONS: LLQ ABD PAIN CONTRAST: 100mL Omni 300 TECHNIQUE: After the administration of oral and intravenous contrast, 5 mm thick sections acquired from the diap hragms to the symphysis. 5 mm thick coronal and sagittal reformats were acquired. For radiation dos e reduction, the following was used: automated exposure control, adjustment of mA and/or kV accordin g to patient size. COMPARISON: None. FINDINGS: Image quality: Excellent. ABDOMEN: Lung bases: Stable linear nodularity in the right lower lung zone compared with 05/17/2022, favoring a benign scar. Heart size is normal. Solid organs: Benign segment 5 cyst of the liver. Additional subcentimeter hypoattenuating liver lesi ons are present, too small to characterize by CT, but probably small cysts. Septated, fluid attenuati ng cystic lesion along the superior margin of the spleen probably represents post reticulocyte injury . Remaining solid organs are unremarkable. Peritoneum and bowel: Colonic diverticulosis without evidence of diverticulitis. Bowel loops demonstr ate normal wall thickness and caliber. No free fluid or air. Nodes and vessels: No retroperitoneal or mesenteric adenopathy by size criteria. Aorta and inferior vena cava are normal in size. Miscellaneous: No ventral hernias. PELVIS: Genitourinary: Bladder wall thickness is normal. A simple appearing left ovarian cystic lesion measu ring 2.3 cm. Miscellaneous: No inguinal hernias or adenopathy. Bones: No suspicious bony lesions. No vertebral body compression fractures. IMPRESSION: 1. No acute abnormality to explain the patient's left lower quadrant pain. Colonic diverticulosis wit hout evidence of diverticulitis. 2. Simple appearing left ovarian cystic lesion measuring 2.3 cm. Recommend pelvic ultrasound for comp lete characterization, as follow-up may be necessary given patient age. Reviewed by: Ruben Pinto on 09/08/2022 4:15 PM PST Approved by: Ruben Pinto on 09/08/2022 4:15 PM PST Station ID: [id number]
== END 2022-09-08 14:27 | disposition home or self-care (01) ==
LOC: LAB 14:26
PROVIDERS: ATTEND Physician Assistant Medical
DX: R10.32 Left lower quadrant pain (principal); K57.30 Diverticulosis of large intestine without perforation or abscess without bleeding; N83.202 Unspecified ovarian cyst, left side
CPT/HCPCS: 36415; 74177; 82565; Q9963; Q9967

== ENCOUNTER 2022-11-02 13:37 | Outpatient (CLI) | payer MEDICARE, OTHER ==
--- NOTE | 2022-11-02 14:33 | XRAY Report ---
PROCEDURE: Hips 2V BILAT INDICATIONS: HIP PAIN TECHNIQUE: 2 views of each hip were obtained . COMPARISON: None. FINDINGS: Bones: No fractures or dislocations. No suspicious bony lesions. Soft tissues: No suspicious soft tissue calcifications or masses. IMPRESSION: Unremarkable bilateral hip radiographs Reviewed by: Brady Mathias MD on 11/02/2022 1:32 PM [facility] Approved by: Brady Mathias MD on 11/02/2022 1:32 PM [facility] Station ID: [id number]
== END 2022-11-02 13:38 | disposition home or self-care (01) ==
LOC: DI 13:37
PROVIDERS: ATTEND Physician Assistant Medical
DX: M25.552 Pain in left hip (principal)

== ENCOUNTER 2023-07-12 18:50 | Outpatient (CLI) | payer MEDICARE, OTHER ==
--- NOTE | 2023-07-13 11:01 | XRAY Report ---
PROCEDURE: Wrist 4 View RT INDICATIONS: UNSPECIFIED INJURY OF RIGHT WRIST, HAND AND FINGER TECHNIQUE: 4 views of the wrist were acquired. COMPARISON: None. FINDINGS: Bones: Overlying casting material limits evaluation of finer bony detail. No definite acute fracture s or dislocations. Chronic appearing ulnar sided fracture is noted. Sclerosis of the radial aspect o f the lunate. No suspicious bony lesions. Soft tissues: No suspicious soft tissue calcifications or masses. IMPRESSION: 1.Overlying casting material limits evaluation of finer bony detail. No definite acute fractures are seen. 2.Chronic appearing ulnar styloid fracture. 3.Sclerosis of the radial aspect of the lunate, Kienbock's disease is not excluded. Reviewed by: Gnee Vo MD on 07/13/2023 11:00 AM PST Approved by: Gene Vo MD on 07/13/2023 11:00 AM PST Station ID: [id number]
== END 2023-07-12 18:51 | disposition home or self-care (01) ==
LOC: DI 18:50
PROVIDERS: ATTEND Family Medicine
DX: M84.431A Pathological fracture, right ulna, initial encounter for fracture (principal); S69.91XA Unspecified injury of right wrist, hand and finger(s), initial encounter

== ENCOUNTER 2023-07-19 13:00 | Outpatient (CLI) | payer MEDICARE, OTHER ==
--- NOTE | 2023-07-19 15:51 | XRAY Report ---
PROCEDURE: Wrist 4 View RT INDICATIONS: UNSPECIFIED INJURY OF RIGHT WRIST,HAND,FINGERS TECHNIQUE: 4 views of the wrist were acquired. COMPARISON: None. FINDINGS: Bones: No fractures or dislocations. No suspicious bony lesions. Small bone island in the right cheri ate bone. Small accessory ossicle adjacent to the ulnar styloid process. Soft tissues: No suspicious soft tissue calcifications or masses. IMPRESSION: No fracture. No acute osseous lesion. If symptoms and/or clinical concern for pathology persists, fur ther assessment with advanced imaging (CT, MR, bone scan) should be considered. Reviewed by: Sherri Garcia MD, PhD on 07/19/2023 3:49 PM PST Approved by: Sherri Garcia MD, PhD on 07/19/2023 3:49 PM PST Station ID: [id number]
== END 2023-07-19 13:15 | disposition home or self-care (01) ==
LOC: DI.N 13:00
PROVIDERS: ATTEND Family Medicine
DX: S69.91XD Unspecified injury of right wrist, hand and finger(s), subsequent encounter (principal)

== ENCOUNTER 2023-08-08 10:51 | Outpatient (CLI) | payer MEDICARE, OTHER ==
--- NOTE | 2023-08-09 15:37 | Mammography Report ---
BILATERAL DIGITAL SCREENING MAMMOGRAM 3D/2D: 08/08/2023 CLINICAL: Routine screening. Comparison is made to exams dated: 07/29/2022 mammogram, 07/08/2022 mammogram, 10/21/2020 mammogram, 09/27/2019 mammogram, 07/26/2018 mammogram, and 07/22/2017 mammogram - [facility]. There are scattered areas of fibroglandular density in both breasts (category b / 25%-50% glandular t issue). No significant masses, calcifications, or other findings are seen in either breast. There has been no significant interval change. IMPRESSION: NEGATIVE There is no mammographic evidence of malignancy. A 1 year screening mammogram is recommended. Based on the Tyrer Cuzick model (a risk assessment model) the patients lifetime risk is 3.5% and her 10 year risk is 3.1%. According to the ACR, ACS, and NCCN guidelines, an annual breast MRI exam along with mammogram is recommended if the patients lifetime risk is 20% or greater. This exam was interpreted at Station ID: [id number]. NOTE: For mammograms, a report in lay terms will be sent to the patient. Approximately 15% of breast malignancies will not be visualized mammographically. In the management of a palpable breast mass, a negative mammogram must not discourage biopsy of a clinically suspicious lesion. Electronically Signed By: Joyce garland/jake:08/08/2023 14:35:10 ACR BI-RADS Category 1: Negative 3341F PARENCHYMAL PATTERN: (A) - The breast(s) demonstrate(s) scattered fibroglandular densities. BI-RADS CATEGORY: (1) - 1 Mammogram [id number] 1 year screening LATERALITY: (B)
== END 2023-08-08 10:52 | disposition home or self-care (01) ==
LOC: DI.N 10:51
DX: Z12.31 Encounter for screening mammogram for malignant neoplasm of breast (principal); R92.323 Mammographic fibroglandular density, bilateral breasts

== ENCOUNTER 2023-09-26 09:12 | Outpatient (CLI) | payer MEDICARE, OTHER ==
[2023-09-26 11:53] LABS: BASOPHILS # (AUTO) 0.1 10^3/uL (0.0-0.1); BASOPHILS % (AUTO) 1.7 %; EOSINOPHILS # (AUTO) 0.1 10^3/uL (0.0-0.7); EOSINOPHILS % (AUTO) 1.9 %; HCT - HEMATOCRIT 39.5 % (37.0-47.0); HGB - HEMOGLOBIN 11.8 g/dL (12.0-16.0); LYMPHOCYTES # (AUTO) 2.1 10^3/uL (1.5-3.5); LYMPHOCYTES % (AUTO) 44.8 %; MEAN CORPUSCULAR HGB CONC 29.9 g/dL (32.0-36.0); MEAN CORPUSCULAR VOLUME 87.2 fL (81.0-99.0); MEAN PLATELET VOLUME 9.2 fL (7.9-10.8); MONOCYTES # (AUTO) 0.5 10^3/uL (0.0-1.0); MONOCYTES % (AUTO) 10.3 %; NEUTROPHILS # (AUTO) 1.9 10^3/uL (1.5-6.6); NEUTROPHILS % (AUTO) 41.1 %; PLT - PLATELET COUNT 428 10^3/uL (130-450); RED BLOOD COUNT 4.53 10^6/uL (4.20-5.40); RED CELL DISTRIBUTION WIDTH 15.1 % (12.0-15.0); WHITE BLOOD COUNT 4.7 x10^3/uL (4.8-10.8)
[2023-09-26 12:15] LABS: ALBUMIN 4.2 g/dL (3.2-5.5); ALBUMIN/GLOBULIN RATIO 1.6 (1.0-2.2); ALKALINE PHOSPHATASE 55 IU/L (42-121); ALT ALANINE AMINOTRANSFERASE 10 IU/L (10-60); AST ASPARTATE AMINOTRANSFERASE 12 IU/L (10-42); BILIRUBIN,TOTAL 0.6 mg/dL (0.2-1.0); BUN - BLOOD UREA NITROGEN 18 mg/dL (6-20); CALCIUM 9.5 mg/dL (8.5-10.3); CARBON DIOXIDE - CO2 29 mmol/L (21-32); CHLORIDE 107 mmol/L (101-111); CHOL/HDL RATIO 2.9 (<4.4); CHOLESTEROL 256 mg/dL; CREATININE 0.9 mg/dL (0.6-1.3); GFR - MDRD 61 (>89); GLUCOSE 109 mg/dL (74-104); HDL CHOLESTEROL 89 mg/dL; LDL CHOLESTEROL,CALCULATED 153 mg/dL; LDL/HDL RATIO 1.7 (<4.4); POTASSIUM 4.3 mmol/L (3.5-4.5); SODIUM 141 mmol/L (135-145); TOTAL PROTEIN 6.9 g/dL (6.4-8.9); TRIGLYCERIDES 68 mg/dL (48-352); VLDL CHOLESTEROL 14 mg/dL
[2023-09-26 12:22] LABS: THYROID STIMULATING HORMONE 1.97 uIU/mL (0.34-5.60)
== END 2023-09-26 09:13 | disposition home or self-care (01) ==
LOC: LAB.N 09:12
PROVIDERS: ATTEND Physician Assistant Medical
DX: E78.2 Mixed hyperlipidemia (principal); I10 Essential (primary) hypertension
CPT/HCPCS: 36415; 80053; 80061; 83721; 84443; 85025

== ENCOUNTER 2023-10-10 09:31 | Outpatient (CLI) | payer MEDICARE, OTHER ==
--- NOTE | 2023-10-10 16:25 | MRI Report ---
PROCEDURE: Lumbar Spine WO INDICATIONS: LOW BACK PAIN TECHNIQUE: Noncontrast sagittal T1 spin echo and T2 fast echo, sagittal STIR, axial T1 and T2 fast spin echo thr ough the lumbar spine. In cases with scoliosis, additional coronal T2 fast spin echo may be performe d. COMPARISON: 06/02/2015. FINDINGS: Image quality: Excellent. Alignment and Curvature: There is normal bony alignment. Bone Marrow: Marrow is of normal overall signal. No acute vertebral body compression fractures. Spinal Cord: Conus medullaris terminates at the L1 level. Visualized cord demonstrates normal signa l and size. Perineural cyst on the right at S1-S2 level. Paraspinous Soft Tissues: No paravertebral masses. Hepatic simple appearing cyst. T12-L1: Normal in appearance. L1-L2: Mild disc desiccation and height loss. Mild disc bulge. No central canal or neuroforaminal stenosis. L2-L3: Mild disc desiccation and mild distal bulge. No central canal or neuroforaminal stenosis. L3-L4: Mild disc desiccation and mild disc bulge. Facet arthropathy. No significant central canal o r neuroforaminal stenosis. L4-L5: Mild disc desiccation. Facet arthropathy. No significant central canal or neuroforaminal tana nosis. L5-S1: Disc desiccation. No central canal or neuroforaminal stenosis. IMPRESSION: Mild degenerative changes of the lumbar spine without significant central canal or neuroforaminal tana nosis. No significant change compared to prior. Reviewed by: Gene Vo MD on 10/10/2023 4:24 PM PDT Approved by: Gene Vo MD on 10/10/2023 4:24 PM PDT Station ID: [id number]
== END 2023-10-10 09:32 | disposition home or self-care (01) ==
LOC: DI 09:31
PROVIDERS: ATTEND Physician Assistant Medical
DX: M47.816 Spondylosis without myelopathy or radiculopathy, lumbar region (principal)

== ENCOUNTER 2024-02-16 09:30 | Day surgery (SDC) | payer MEDICARE, OTHER ==
[2024-02-16] MEDS: LACTATED RINGERS 1,000 ML IV ONE (09:32)
--- NOTE | 2024-02-16 10:04 | ANESTHESIA ---
Pre-Anesthesia VS, & Labs - Diagnosis screening exam - Procedure colonoscopy Vital Signs: Temp Pulse Resp BP Pulse Ox O2 Flow Rate 36.5 C 76 18 150/88 H 97 02/16/24 09:36 02/16/24 09:36 02/16/24 09:36 02/16/24 09:36 02/16/24 09:36 Height: 5 ft 7 in Weight (kg): 87.3 kg Body Mass Index: 30.1 BMI Classification: Obese - NPO >8 hours - Is Patient ?: No Home Medications and Allergies Home Medications: Ambulatory Orders DULoxetine [Cymbalta] 60 mg ORAL DAILY 02/15/24 Losartan Potassium 25 mg PO DAILY 02/16/24 Levothyroxine [Synthroid] 25 mcg PO QDAC 04/24/13 Albuterol Sulfate [Ventolin Hfa] 8 gm IH PRN PRN 06/06/13 Scopolamine Patch [Transderm-Scop] 1 each TOP PRN PRN 06/06/13 DULoxetine [Cymbalta] 60 mg ORAL DAILY 02/15/24 Losartan Potassium 25 mg PO DAILY 02/16/24 Allergies/Adverse Reactions: Allergies Allergy/AdvReac Type Severity Reaction Status Date / Time Penicillins Allergy Mild Rash Verified 04/24/13 14:40 Sulfa (Sulfonamide Allergy Mild Rash Verified 04/24/13 14:40 Antibiotics) Anes History & Medical History - Anesthetic History Anesthesia Complications: reports: No previous complications - Medical History Cardiovascular: reports: Hypertension, High cholesterol Pulmonary: reports: Asthma Gastrointestinal: reports: None Urinary: reports: None Neuro: reports: None Musculoskeletal: reports: None Endocrine/Autoimmune: reports: None, HyPOthyroidism Skin: reports: None Smoking Status: Never smoker Psychosocial: reports: Anxiety History of Cancer?: No - Surgical History General: reports: Colonoscopy Eyes Ears Nose Throat (EENT): reports: Tonsil/Adenoidectomy Gynecologic: reports: section Exam General: Alert, Oriented x3, Cooperative, No acute distress Dental: WNL Mouth Openin Fingerbreadth Neck Mobility: Normal Mallampati classification: III Thyromental Distance: 4-6 cm Mental/Cognitive Status: Alert/Oriented X3, Normal for patient Plan Anesthesia Type: General, Total IV Consent for Procedure(s) Verified and Reviewed: Yes Code Status: Attempt Resuscitation ASA classification: 2-Mild systemic disease Is this case an emergency?: No
--- NOTE | 2024-02-16 10:09 | HISTORY & PHYSICAL EXAMINATION ---
Chief Complaint - Chief Complaint Chief Complaint: here for colonoscopy History of Present Illness - History Obtained From Records Reviewed: yes History obtained from: pt Exam Limitations: none - History of Present Illness HPI Comment/Other: her for colonoscopy. last colon cancer screening 10 years ago. 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 HEENT: reports: Tonsil/Adenoidectomy Meds/Allgy - Home Medications Home Medications: Ambulatory Orders Medication Instructions Recorded Confirmed Levothyroxine [Synthroid] 25 mcg PO QDAC 04/24/13 02/15/24 Albuterol Sulfate [Ventolin Hfa] 8 gm IH PRN PRN 06/06/13 02/15/24 Scopolamine Patch [Transderm-Scop] 1 each TOP PRN PRN 06/06/13 02/16/24 DULoxetine [Cymbalta] 60 mg ORAL DAILY 02/15/24 02/15/24 Losartan Potassium 25 mg PO DAILY 02/16/24 02/16/24 - Allergies Allergies/Adverse Reactions: Allergies Allergy/AdvReac Type Severity Reaction Status Date / Time Penicillins Allergy Mild Rash Verified 04/24/13 14:40 Sulfa (Sulfonamide Allergy Mild Rash Verified 04/24/13 14:40 Antibiotics) Review of Systems - Other Findings Other Findings: 10 pt ros as above otherwise unremarkable Exam - Vital Signs Vital Signs: Vital Signs x48h Temp Pulse Resp BP Pulse Ox 02/16/24 09:36 36.5 C 76 18 150/88 H 97 - Physical Exam General Appearance: positive: No acute distress, Alert Eyes Bilateral: positive: PERRL, EOMI ENT: positive: No signs of dehydration Neck: positive: No JVD, Trachea midline Respiratory: positive: No respiratory distress Cardiovascular: positive: Regular rate & rhythm Abdomen: positive: No distention Neurologic/Psychiatric: positive: Oriented x3 Conclusion/Plan - Problem List (1) Colon cancer screening Conclusion/Plan: plan colonoscopy. parq held and consent obtained
[2024-02-16] MEDS ORDERED: PROPOFOL 500 MG/50 ML 500 MG/50 ML VIAL ONE (10:19)
[2024-02-16] MEDS: LACTATED RINGERS 200 ML IV ONE ×2 (10:43→11:16)
--- NOTE | 2024-02-16 11:02 | ANESTHESIA POST OP EVALUATION ---
Anesthesia Post Eval - Post Anesthesia Eval Vitals: Last Vital Signs Temp 36.6 C 02/16/24 10:59 Pulse 62 02/16/24 10:59 Resp 16 02/16/24 10:59 BP 125/62 02/16/24 10:59 Pulse Ox 100 02/16/24 10:59 O2 Flow Rate CV Function Including HR & BP: Stable Pain Control: Satisfactory Nausea & Vomiting: Negative Mental Status: Baseline Respiratory Status: Airway Patent Hydration Status: Satisfactory Anesthesia Complications: None
[2024-02-16 11:06] VITALS: BP 125/62; O2SAT 100
== END 2024-02-16 09:31 | disposition home or self-care (01) ==
LOC: SDS 09:30
PROVIDERS: ATTEND Surgery
PROC: 0DBH8ZZ Excision of Cecum, Via Natural or Artificial Opening Endoscopic (ICD-10-PCS; principal; 2024-02-16 10:30)
DX: Z12.11 Encounter for screening for malignant neoplasm of colon (principal); K63.5 Polyp of colon; K57.30 Diverticulosis of large intestine without perforation or abscess without bleeding; E66.9 Obesity, unspecified; Z68.30 Body mass index [BMI] 30.0-30.9, adult; J45.909 Unspecified asthma, uncomplicated
CPT/HCPCS: 45380; J7120

== ENCOUNTER 2024-02-21 09:14 | Outpatient (CLI) | payer MEDICARE, OTHER ==
[2024-02-21 13:03] LABS: ALBUMIN 4.2 g/dL (3.2-5.5); ALBUMIN/GLOBULIN RATIO 1.8 (1.0-2.2); ALKALINE PHOSPHATASE 60 IU/L (42-121); ALT ALANINE AMINOTRANSFERASE 11 IU/L (10-60); AST ASPARTATE AMINOTRANSFERASE 13 IU/L (10-42); BILIRUBIN,TOTAL 0.5 mg/dL (0.2-1.0); BUN - BLOOD UREA NITROGEN 17 mg/dL (6-20); CALCIUM 9.5 mg/dL (8.5-10.3); CARBON DIOXIDE - CO2 30 mmol/L (21-32); CHLORIDE 108 mmol/L (101-111); CHOL/HDL RATIO 2.2 (<4.4); CHOLESTEROL 165 mg/dL; CREATININE 0.9 mg/dL (0.6-1.3); GFR - MDRD 61 (>89); GLUCOSE 102 mg/dL (74-104); HDL CHOLESTEROL 76 mg/dL; LDL CHOLESTEROL,CALCULATED 79 mg/dL; POTASSIUM 4.5 mmol/L (3.5-4.5); SODIUM 141 mmol/L (135-145); TOTAL PROTEIN 6.6 g/dL (6.4-8.9); TRIGLYCERIDES 49 mg/dL; VLDL CHOLESTEROL 10 mg/dL
== END 2024-02-21 09:15 | disposition home or self-care (01) ==
LOC: LAB.N 09:14
PROVIDERS: ATTEND Physician Assistant Medical
DX: E78.2 Mixed hyperlipidemia (principal)
CPT/HCPCS: 36415; 80053; 80061; 83721

== ENCOUNTER 2024-04-09 15:14 | Outpatient (CLI) | payer MEDICARE, OTHER ==
--- NOTE | 2024-04-09 16:44 | DEXA Report ---
PROCEDURE: Dexa Spine and/or Hip INDICATIONS: POST MENOPAUSAL TECHNIQUE: Dual energy x-ray absorptiometry (DXA) was performed on a [employer] System. Regions measur ed are the AP Spine, femoral neck, and if needed forearm. COMPARISON: DEXA 10/27/2021 FINDINGS: Lumbar Spine: Bone Mineral Density: 1.05 g/cm/cm,T score: -1.1, compared to -1.2. Left Femoral Neck: Bone Mineral Density: 0.757 g/cm/cm, T score: -2.0, compared to -2.4. Left Hip: Bone Mineral Density: 0.812 g/cm/cm,T score: -1.6, compared to -1.5. Left Forearm: FRAX risk factors: None given. 10 year risk of major osteoporotic fracture: 12.8% major osteoporotic fracture = hip, clinical vertebral, proximal humerus, distal forearm 10 year risk of hip fracture: 3.2% (T score greater or equal to -1.0: NORMAL) (T score from -1.1 to -2.4: OSTEOPENIA) (T score less than or equal to -2.5 to: OSTEOPOROSIS) Impression: By WHO criteria, this patient has osteopenia most severe in the left femoral neck although demonstrat e mild increased bone mineral density compared to prior exam. Patients with diagnosis of osteoporosis or osteopenia should have regular bone mineral density assess ment. For those eligible for Medicare, routine testing is allowed once every 2 years. Testing frequ ency can be increased for patients who have rapidly progressing disease or for those who are receivin g medical therapy to restore bone mass. Reviewed by: Magi Crandall MD on 04/09/2024 4:43 PM PDT Approved by: Magi Crandall MD on 04/09/2024 4:43 PM PDT Station ID: [id number]
== END 2024-04-09 15:15 | disposition home or self-care (01) ==
LOC: DI 15:14
PROVIDERS: ATTEND Physician Assistant Medical
DX: M85.89 Other specified disorders of bone density and structure, multiple sites (principal); Z78.0 Asymptomatic menopausal state